=== PATIENT | female | born 1985 ===

== ENCOUNTER 2018-06-26 09:28 | Outpatient (REF) | payer MEDICAID, SELFPAY ==
[2018-06-29 11:37] LABS: Hepatitis C Ab w Rflx HCV PCR Negative (NEGAT)
[2018-06-29 12:08] LABS: HIV-1/2 Ag & Ab Screen Negative (NEGAT)
[2018-06-29 12:23] LABS: HBs Antibody, Quant 51.2 mIU/mL; Hepatitis B Surface Ab Positive
[2018-06-29 14:28] LABS: Hepatitis B Surface Ag Negative (NEGAT)
== END 2018-06-26 09:48 ==
LOC: NCHCN 09:28
PROVIDERS: PCP Registered Nurse; Visit Provider Registered Nurse
DX: V00-Y99 External causes of morbidity (principal); Z11.59 Encounter for screening for other viral diseases; Z11.4 Encounter for screening for human immunodeficiency virus [HIV]
CPT/HCPCS: 86706; 86803; 87340; 87389

== ENCOUNTER 2018-12-08 09:20 | Outpatient (REF) | payer SELFPAY ==
[2018-12-08 20:42] LABS: HGB 14.5 g/dL (12.0-15.5)
[2018-12-08 20:57] LABS: Calculated LDL 141 mg/dL; Cholesterol 208 mg/dL (50-200); Glucose 87 mg/dL (70-100); HDL Cholesterol 56 mg/dL (40-60); Triglyceride 58 mg/dL (30-150)
== END 2018-12-08 09:40 ==
LOC: NCHCN 09:20
PROVIDERS: PCP Registered Nurse; Visit Provider Registered Nurse
DX: Z00.00 Encounter for general adult medical examination without abnormal findings (principal); Z13.1 Encounter for screening for diabetes mellitus; Z13.220 Encounter for screening for lipoid disorders; Z13.0 Encounter for screening for diseases of the blood and blood-forming organs and certain disorders involving the immune mechanism
CPT/HCPCS: 80061; 82947; 83721; 85018

== ENCOUNTER 2019-06-08 14:10 | Outpatient (REF) | payer SELFPAY ==
[2019-06-10 09:24] LABS: Hepatitis B Surface Ag Negative (Negative)
[2019-06-10 10:11] LABS: HIV-1/2 Ag & Ab Screen Negative (Negative)
[2019-06-10 10:33] LABS: Hepatitis C Ab w Rflx HCV PCR Negative (Negative)
== END 2019-06-08 14:30 ==
LOC: NCHCN 14:10
PROVIDERS: PCP Registered Nurse; Visit Provider Registered Nurse
DX: V00-Y99 External causes of morbidity (principal); Z11.4 Encounter for screening for human immunodeficiency virus [HIV]; Z11.59 Encounter for screening for other viral diseases
CPT/HCPCS: 86803; 87340; 87389

== ENCOUNTER 2020-06-02 10:54 | Outpatient (REF) | payer BC, SELFPAY ==
[2020-06-02 13:37] LABS: HCT 42.6 % (36.0-46.0); HGB 14.6 g/dL (11.2-15.7); MCH 31.9 pg (27.0-33.0); MCHC 34.3 % (32.0-36.0); MCV 93.2 fL (80-95); MPV 9.8 fL (8.0-11.0); Platelet Count 238 10^3/uL (130-400); RBC 4.57 10^6/uL (3.93-5.22); RDW 11.5 % (11.7-14.6); RDW-SD 39.1 fL
[2020-06-02 14:18] LABS: ALT 16 U/L (14-59); AST 12 U/L (15-37); Albumin 4.7 g/dL (3.4-5.0); Alkaline Phosphatase 53 U/L (46-116); Anion Gap 7.6 mmol/L (3-11); BUN 10 mg/dL (7-18); Bilirubin, Total 0.6 mg/dL (0.2-1.0); CO2 28.4 mmol/L (21.0-32.0); CREATININE 1.07 mg/dL (0.55-1.02); Calcium 9.1 mg/dL (8.5-10.1); Chloride 104 mmol/L (98-107); Estimated GFR 58.36 (mL/min/1.73m2); Glucose 90 mg/dL (74-106); Potassium 3.6 mmol/L (3.5-5.1); Sodium 140 mmol/L (136-145); TSH (W/Ref FT4) 1.73 uIU/mL (0.36-3.74); Total Protein 7.5 g/dL (6.4-8.2); Vitamin B12 565 pg/mL (193-986)
== END 2020-06-02 11:14 ==
LOC: NCHCN 10:54
PROVIDERS: PCP Registered Nurse; Visit Provider Registered Nurse
DX: R42 Dizziness and giddiness (principal); E53.8 Deficiency of other specified B group vitamins; F31.60 Bipolar disorder, current episode mixed, unspecified
CPT/HCPCS: 80053; 85027; 82607; 84443

== ENCOUNTER 2020-07-28 11:57 | Outpatient (REF) | payer BC, SELFPAY ==
--- NOTE | 2020-07-28 08:45 | PAPFT_PTH ---
PATIENT: Kiara Larry LOC: [facility] U#:[id number] AGE/SX: 35/F ROOM: RE07/28/[address]: Yvette Majano : 1985 BED: DIS: 07/28/2020 SPEC #: [id number] RECD: 07/28/20 12:57 STATUS: MELVIN ARELLANO #: [id number] ADELSO: 07/28/20 08:[address]: Yvette Majano DEPT: [facility] Cytology RECD BY: Raquel Parada Tissues: 1 - CX/ENDOCX FOR PAP SMEARS Procedures: PAP THIN PREP/[facility] Screening HPV DNA PROBE Comments: [id number]
[2020-07-28 13:38] LABS: BUN 11 mg/dL (7-18); CREATININE 0.9 mg/dL (0.55-1.02)
== END 2020-07-28 11:58 | disposition home or self-care (01) ==
LOC: NCHCN 11:57
PROVIDERS: PCP Registered Nurse; Visit Provider Registered Nurse
DX: R94.4 Abnormal results of kidney function studies (principal); Z12.4 Encounter for screening for malignant neoplasm of cervix; Z11.51 Encounter for screening for human papillomavirus (HPV)
CPT/HCPCS: 84520; 88142; 82565; 87624

== ENCOUNTER 2023-04-10 21:35 | Outpatient (REF) | payer BC, SELFPAY ==
[2023-04-10 21:15] LABS: Source Nasal/Nares
[2023-04-10 22:02] LABS: COVID-19 PCR Negative (Negative)
== END 2023-04-10 21:36 | disposition home or self-care (01) ==
LOC: LBN 21:35
PROVIDERS: PCP Registered Nurse; Visit Provider Physician Assistant Medical
DX: J02.9 Acute pharyngitis, unspecified (principal); R05.8 Other specified cough; Z20.822 Contact with and (suspected) exposure to COVID-19
CPT/HCPCS: 87635; 87070

== ENCOUNTER 2024-04-13 11:33 | Outpatient (REF) | payer BC, SELFPAY ==
--- NOTE | 2024-04-13 13:30 | PAPFT_PTH ---
PATIENT: Kiara Larry LOC: [facility] U#:[id number] AGE/SX: 39/F ROOM: RE04/13/[address]: Bree Yanez : 1985 BED: DIS: 04/13/2024 SPEC #: [id number] RECD: 04/14/24 13:34 STATUS: MELVIN REArnol #: [id number] ADELSO: 04/13/24 13:[address]: Bree Yanez DEPT: [facility] Cytology RECD BY: Raquel Parada ENTERED: 04/14/24 13:34 SP TYPE: PAPFT OTHR DR: Yvette Majano Tissues: 1 - CX/ENDOCX FOR PAP SMEARS Procedures: PAP THIN PREP/[facility] Screening HPV DNA PROBE Comments: [id number] (HPV 16 & 18/45)
== END 2024-04-13 11:34 | disposition home or self-care (01) ==
LOC: NCHCN 11:33
PROVIDERS: PCP Registered Nurse; Visit Provider Family Medicine
DX: Z11.51 Encounter for screening for human papillomavirus (HPV) (principal); Z01.419 Encounter for gynecological examination (general) (routine) without abnormal findings
CPT/HCPCS: 88142; 87624